=== PATIENT | female | born 1970 | race Caucasian/White ===

== ENCOUNTER 2016-07-17 16:14 | Emergency (ER) | payer MEDICARE, MEDICAID ==
[~2016-07-17] VITALS: Ht 162.6 cm; Wt 130.0 kg
[~2016-07-17 16:14] MED LIST: ALBU17I INH; AMOX500T2 PO; CETI5SOL PO; CROM5.2S; OCUF0.3D LEFT EYE; [UNRECOGNIZED DRUG - CODE] LEFT EYE
[2016-07-17 16:17] VITALS: BP 125/76; PULSE 112; RESP 24; TEMP 98; O2SAT 95
[2016-07-17] MEDS ORDERED: depression med (16:45)
[2016-07-17] MEDS ORDERED: ALBU6.7H INH (16:45)
[2016-07-17] MEDS ORDERED: methylPREDNISolone SOD SUCC 125 MG/2 ML VIAL IVP ONE (17:15)
[2016-07-17] MEDS ORDERED: SODIUM CHLORIDE 0.9% FLUSH 5 ML FLUSH IVF PRN (17:15)
[2016-07-17 17:22] VITALS: O2SAT 98
--- NOTE | 2016-07-17 17:22 | RADRPT ---
EXAM DATE/TIME: 07/17/2016 17:19 [place] COMPARISON: CHEST SINGLE AP, September 29, 2014, 17:57. INDICATIONS : Wheezing MEDICAL HISTORY : Asthma SURGICAL HISTORY : None. ENCOUNTER: Initial ACUITY: 3 days PAIN SCORE: 0/10 LOCATION: Bilateral chest FINDINGS: A single view of the chest demonstrates the lungs to be symmetrically aerated without evidence of mas s, infiltrate or effusion. The cardiomediastinal contours are unremarkable. Osseous structures are intact. CONCLUSION: No acute disease. Junior Wood MD FACR on July 17, 2016 at 17:20 Board Certified Radiologist. This report was verified electronically.
[2016-07-17] MEDS: RESP: ALBUTEROL 2.5 MG/IPRATROPIUM 0.5 MG NEB (SCH) INH ×2 (17:37→17:38)
[2016-07-17 17:40] LABS: AUTOMATED NEUTROPHIL # 6.3 TH/MM3 (1.8-7.7); BASOPHIL # 0.1 TH/MM3 (0-0.2); BASOPHIL % 0.7 % (0.0-2.0); EOSINOPHIL # 0.2 TH/MM3 (0-0.4); EOSINOPHIL % 1.9 % (0.0-4.0); HEMATOCRIT 41.7 % (35.0-46.0); HEMO FLAGS DIFF FINAL; LYMPH % 32.6 % (9.0-44.0); LYMPHOCYTE # 3.6 TH/MM3 (1.0-4.8); MEAN CELL VOLUME 81.7 FL (80.0-100.0); MEAN CORPUSCULAR HEMOGLOBIN 26.9 PG (27.0-34.0); MONO % 7.1 % (0.0-8.0); NEUT % 57.7 % (16.0-70.0); PLATELET COUNT 224 TH/MM3 (150-450); RED CELL DISTRIBUTION WIDTH 15.1 % (11.6-17.2)
--- NOTE | 2016-07-17 17:51 | PD ---
HPI Chief Complaint: Respiratory Symptoms Time Seen by Provider: 17:05 Travel History International Travel<30 days: No Contact w/Intl Traveler<30days: No Traveled to known affect area: No History of Present Illness HPI This is a 45-year-old female who presents to the emergency department with for 5 days of rhinorrhea, sore throat, productive cough with green sputum and shortness of breath. She has a history of asthma and she feels like her shortness of breath is worsening. She says that she has had subjective fevers and chills. She called her doctor who told her to come to the emergency department. She is also having burning in her upper chest which is worse with deep breaths and with coughing. She feels very fatigued and malaise. PFSH Past Medical History Asthma: Yes Anxiety: Yes Heart Rhythm Problems: No Cardiac Catheterization: No Cardiovascular Problems: Yes (htn) High Cholesterol: No Congestive Heart Failure: No Diabetes: Yes (diet controlled) Patient Takes Glucophage: No Diminished Hearing: No GERD: Yes Heparin Induced Thrombocytopen: No Hypertension: Yes Respiratory: Yes (asthma) Immunizations Current: Yes Thyroid Disease: Yes (HYPOTHYROID) Influenza Vaccination: No ?: Not Menopausal: Yes Past Surgical History Section: Yes (X2) Coronary Artery Bypass Graft: No Hysterectomy: Yes Family History Family Myocardial Infarction: Yes Social History Alcohol Use: Yes (SOCIALLY) Tobacco Use: No Substance Use: No (Pt denies) Allergies-Medications (Allergen,Severity, Reaction): Coded Allergies: Adhesives (Verified Allergy, Severe, RASH, 07/17/16) Advair (Verified Allergy, Severe, 07/17/16) Bee Sting (Verified Adverse Reaction, Intermediate, FACIAL SWELLING, ) Uncoded Allergies: ASTHMA PILL (Allergy, Severe, 12/19/11) z-pack (Adverse Reaction, Intermediate, itching, 11/12/13) Reported Meds & Prescriptions Reported Meds & Active Scripts Active Reported [depression med] Proventil Hfa 6.7 GM Inh (Albuterol Sulfate) 90 Mcg/Act Aer 1 Puff INH Q4H PRN Review of Systems Except as stated in HPI: all other systems reviewed are Neg Physical Exam Narrative GENERAL:Well appearing, no acute distress SKIN: Warm and dry. HEAD: Atraumatic. Normocephalic. EYES: Pupils equal and round. No injection or drainage. ENT: Moist mucous membranes. Mild posterior pharyngeal erythema. NECK: Trachea midline. CARDIOVASCULAR: Regular rate and rhythm. No murmur appreciated. RESPIRATORY: Diffuse wheezing bilaterally, no increased work of breathing. GASTROINTESTINAL: Abdomen soft, non-tender, nondistended. MUSCULOSKELETAL: No obvious deformities. NEUROLOGICAL: Awake and alert. No obvious cranial nerve deficits. Moving all extremities. PSYCHIATRIC: Appropriate mood and affect; insight and judgment normal. Data Data Last Documented VS Vital Signs Date Time Temp Pulse Resp B/P Pulse Ox O2 Delivery O2 Flow Rate FiO2 07/17/16 17:22 98 Room Air 07/17/16 16:17 98.0 112 24 125/76 Orders Electrocardiogram (07/17/16 ) Complete Blood Count With Diff (07/17/16 17:10) Comprehensive Metabolic Panel (07/17/16 17:10) Chest, Single Ap (07/17/16 17:10) Ecg Monitoring (07/17/16 17:10) Iv Access Insert/Monitor (07/17/16 17:10) Oximetry (07/17/16 17:10) Oxygen Administration (07/17/16 17:10) Methylprednisolone So Succ Inj (Solumedr (07/17/16 17:15) Albuterol-Ipratropium Neb (Duoneb Neb) (07/17/16 17:15) Sodium Chloride 0.9% Flush (Ns Flush) (07/17/16 17:15) Troponin I (07/17/16 17:10) Labs Laboratory Tests Test 07/17/16 17:14 White Blood Count 11.0 TH/MM3 Red Blood Count 5.10 MIL/MM3 Hemoglobin 13.7 GM/DL Hematocrit 41.7 % Mean Corpuscular Volume 81.7 FL Mean Corpuscular Hemoglobin 26.9 PG Mean Corpuscular Hemoglobin 33.0 % Concent Red Cell Distribution Width 15.1 % Platelet Count 224 TH/MM3 Mean Platelet Volume 8.1 FL Neutrophils (%) (Auto) 57.7 % Lymphocytes (%) (Auto) 32.6 % Monocytes (%) (Auto) 7.1 % Eosinophils (%) (Auto) 1.9 % Basophils (%) (Auto) 0.7 % Neutrophils # (Auto) 6.3 TH/MM3 Lymphocytes # (Auto) 3.6 TH/MM3 Monocytes # (Auto) 0.8 TH/MM3 Eosinophils # (Auto) 0.2 TH/MM3 Basophils # (Auto) 0.1 TH/MM3 CBC Comment DIFF FINAL Differential Comment Sodium Level 139 MEQ/L Potassium Level 3.9 MEQ/L Chloride Level 108 MEQ/L Carbon Dioxide Level 22.8 MEQ/L Anion Gap 8 MEQ/L Blood Urea Nitrogen 16 MG/DL Creatinine 0.81 MG/DL Estimat Glomerular Filtration 76 ML/MIN Rate Random Glucose 114 MG/DL Calcium Level 8.3 MG/DL Total Bilirubin 0.2 MG/DL Aspartate Amino Transf 20 U/L (AST/SGOT) Alanine Aminotransferase 26 U/L (ALT/SGPT) Alkaline Phosphatase 73 U/L Troponin I LESS THAN 0.02 NG/ML Total Protein 7.2 GM/DL Albumin 3.2 GM/DL MDM Medical Decision Making Medical Screen Exam Complete: Yes Emergency Medical Condition: Yes Interpretation(s) Afebrile, tachycardic, normotensive No leukocytosis Electrolytes within normal limits Troponin normal Chest x-ray: No acute process Differential Diagnosis Bronchitis, pneumonia, pulmonary embolism, myocardial infarction, acute coronary syndrome Narrative Course This is a 45-year-old female who presents to the emergency department with shortness of breath, wheezing, congestion and productive cough. Patient has audible wheezing on exam. She is placed on a monitor and an IV was established. Labs are all reassuring and chest x-ray is unremarkable with no evidence of pneumonia. I think patient is having an asthma exacerbation in the setting of a viral syndrome. She'll be discharged home with prednisone and bronchodilators. Diagnosis Primary Impression: Acute bronchitis with asthma with acute exacerbation Patient Instructions: General Instructions Additional Instructions: If you develop severe shortness of breath, chest pain, or difficulty breathing return to the emergency department. Use albuterol every 4 hours for the next 2 days. Then use as needed for wheezing. Complete your course of steroids. Complete your course of antibiotics. Follow up with your primary care physician in 2-3 days if your symptoms have not improved. Med/Other Pt SpecificInfo: Prescription(s) given Scripts Prednisone 20 Mg Tab40 Mg PO DAILY #4 TAB Ref 0 Prov:Evelyn Hernández MD 07/17/16 Albuterol Neb 2.5 Mg/3 Ml Neb2.5 Mg NEB Q4HR NEB PRN (SHORTNESS OF BREATH) #60 NEBULE Ref 0 Prov:Highet,Evelyn H. MD 07/17/16 Albuterol 18 GM Inh (Ventolin Hfa 18 GM Inh)90 Mcg/Act Aer2 Puff INH Q4-6H PRN ( SHORTNESS OF BREATH) #1 INHALER Ref 0 Prov:Evelyn Hernández MD 07/17/16 Levofloxacin (Levaquin)500 Mg [id number] Mg PO DAILY 7 Days Ref 0 Prov:Evelyn Hernández MD 07/17/16 Disposition: 01 DISCHARGE HOME Condition: Stable Evelyn Hernández MD Jul 17, 2016 17:51
[2016-07-17 17:57] LABS: ANION GAP 8 MEQ/L (5-15); AST (GOT) 20 U/L (15-37); BICARBONATE 22.8 MEQ/L (21.0-32.0); BLOOD UREA NITROGEN 16 MG/DL (7-18); CHLORIDE 108 MEQ/L (98-107); GLOMERULAR FILTRATION RATE 76 ML/MIN (>89); POTASSIUM 3.9 MEQ/L (3.5-5.1); SODIUM (NA) 139 MEQ/L (136-145)
[2016-07-17 18:02] LABS: ALKALINE PHOSPHATASE 73 U/L (45-117); ALT (GPT) 26 U/L (10-53); TOTAL BILIRUBIN ADULT 0.2 MG/DL (0.2-1.0)
[2016-07-17] MEDS ORDERED: PRED20 PO (18:10)
[2016-07-17] MEDS ORDERED: VENTAER INH (18:10)
[2016-07-17] MEDS ORDERED: ALBU0.08 NEB (18:10)
[2016-07-17] MEDS ORDERED: LEVA500T PO (18:10)
--- NOTE | 2016-07-18 18:53 | EKG ---
Date Performed: 07/17/2016 Time Performed: 17:03:38 PTAGE: 45 years EKG: Sinus rhythm BORDERLINE LEFT AXIS DEVIATION VOLTAGE CRITERIA FOR LVH ABNORMAL ECG PREVIOUS TRACING : 09/29/2014 18.08 Since previous tracing, no significant change noted DOCTOR: Becca Zavala Interpretating Date/Time 07/18/2016 18:52:23
== END 2016-07-17 18:29 | disposition home or self-care (01) ==
LOC: NEPC 16:14
DX: J20.9 Acute bronchitis, unspecified (principal); J45.901 Unspecified asthma with (acute) exacerbation; I10 Essential (primary) hypertension; E03.9 Hypothyroidism, unspecified
CPT/HCPCS: 71010; 80053; 84484; 85025; 93005; 94640; 94664; 96374; 99284; J2930

== ENCOUNTER 2017-01-04 20:38 | Emergency (ER) | payer MEDICARE, MEDICAID ==
[~2017-01-04 20:38] MED LIST changes: +ALBU0.08 NEB; -ALBU17I INH; +ALBU6.7H INH; -AMOX500T2 PO; -CETI5SOL PO; -CROM5.2S; +LEVA500T PO; -OCUF0.3D LEFT EYE; +PRED20 PO; +VENTAER INH; -[UNRECOGNIZED DRUG - CODE] LEFT EYE; +depression med
[2017-01-04 20:40] VITALS: BP 128/66; PULSE 80; RESP 16; TEMP 98.2; O2SAT 98
--- NOTE | 2017-01-04 21:42 | PD ---
Physical Exam Date Seen by Provider: Jan 04, 2017 Time Seen by Provider: 21:41 Data Data Last Documented VS Vital Signs Date Time Temp Pulse Resp B/P Pulse Ox O2 Delivery O2 Flow Rate FiO2 01/04/17 20:40 98.2 80 16 128/66 98 Room Air [facility] Supervised Visit with CRISTINA: No Narrative Course 46 YO F with complaint of 2 days history of burning bilateral hand and foot pain. Sudden onset. Rated 10/10. Vitals reviewed. Patient seen in triage, awaiting bed placement. Ladonna Villegas Jan 04, 2017 21:42
[2017-01-04] MEDS ORDERED: KETOROLAC TROMETHAMINE 30 MG/ML (IVP) VIAL IV PUSH ONE (23:00)
[2017-01-04 23:11] VITALS: RESP 15; O2SAT 98
[2017-01-04 23:31] LABS: AUTOMATED NEUTROPHIL # 5.9 TH/MM3 (1.8-7.7); BASOPHIL # 0.1 TH/MM3 (0-0.2); BASOPHIL % 1.2 % (0.0-2.0); EOSINOPHIL # 0.3 TH/MM3 (0-0.4); EOSINOPHIL % 2.5 % (0.0-4.0); HEMO FLAGS DIFF FINAL; LYMPH % 33.3 % (9.0-44.0); LYMPHOCYTE # 3.8 TH/MM3 (1.0-4.8); MEAN CELL VOLUME 81.6 FL (80.0-100.0); MEAN CORPUSCULAR HGB CONC 31.8 % (32.0-36.0); MONO % 11.1 % (0.0-8.0); NEUT % 51.9 % (16.0-70.0); PLATELET COUNT 212 TH/MM3 (150-450); RED BLOOD COUNT 4.29 MIL/MM3 (4.00-5.30); RED CELL DISTRIBUTION WIDTH 15.1 % (11.6-17.2); WHITE BLOOD COUNT 11.3 TH/MM3 (4.0-11.0)
[2017-01-04 23:41] LABS: BLOOD, URINE NEG (NEG); CALCIUM OXALATE CRYSTALS,URINE FEW /hpf; COMMENT (UR) CULT NOT INDICATED; CULTURE IF INDICATED CULT NOT INDICATED; GLUCOSE,URINE NEG (NEG); KETONE, URINE NEG (NEG); MUCUS URINE MANY /lpf (OCC); NITRITE,URINE NEG (NEG); SQUAMOUS EPITHELIAL CELL URINE 6 /hpf (0-5); URINE COLOR YELLOW (YELLW/STRAW)
[2017-01-04 23:46] LABS: ALT (GPT) 29 U/L (10-53); ANION GAP 6 MEQ/L (5-15); AST (GOT) 19 U/L (15-37); BICARBONATE 28.1 MEQ/L (21.0-32.0); BLOOD UREA NITROGEN 16 MG/DL (7-18); CHLORIDE 107 MEQ/L (98-107); GLOMERULAR FILTRATION RATE 96 ML/MIN (>89); MAGNESIUM 1.9 MG/DL (1.5-2.5); POTASSIUM 3.9 MEQ/L (3.5-5.1); SODIUM (NA) 141 MEQ/L (136-145)
[2017-01-04 23:55] LABS: ALKALINE PHOSPHATASE 85 U/L (45-117); TOTAL BILIRUBIN ADULT 0.2 MG/DL (0.2-1.0)
--- NOTE | 2017-01-04 23:56 | PD ---
HPI Chief Complaint: Edema Time Seen by Provider: 22:51 Travel History International Travel<30 days: No Contact w/Intl Traveler<30days: No Traveled to known affect area: No History of Present Illness HPI The patient is a 46 year old female who presents to the [facility] emergency department with a history of noticing lower extremity edema around noon yesterday. She then began to notice that she had some swelling in her hands. She reports that she has burning in her feet related to the swelling. She denies having any changes to her medication regimen recently. She reports that she does take Aleve twice daily on a daily basis for sciatica and tennis elbow. She reports that she's been doing this for the last 6 months. The patient is unable to recall some of her other medications that she takes at home. She reports that she has been diagnosed as hypothyroid, however a year ago. TSH was normal and her thyroid supplement was discontinued. She is followed by Dr. Guy for her primary care. I review of systems, the patient denies any fevers, cough, congestion, neck pain, chest pain, shortness of breath , abdominal pain, vomiting, diarrhea, urinary symptoms, or neurologic symptoms. [facility] Past Medical History Narrative Medical The patient's past medical history is significant for hypertension, asthma, anxiety disorder, dietary-controlled diabetes mellitus, acid reflux,, hypothyroid disorder. Asthma: Yes Anxiety: Yes Heart Rhythm Problems: No Cardiac Catheterization: No Cardiovascular Problems: Yes (ANGINA ,HTN) High Cholesterol: No Congestive Heart Failure: No Diabetes: Yes (diet controlled) Patient Takes Glucophage: No Diminished Hearing: No GERD: Yes Heparin Induced Thrombocytopen: No Hypertension: Yes Respiratory: Yes (asthma) Immunizations Current: Yes Thyroid Disease: Yes (HYPOTHYROID) ?: Not Menopausal: Yes Past Surgical History Narrative Surgical The patient's past surgical history is significant for 2, hysterectomy. Section: Yes (X2) Coronary Artery Bypass Graft: No Hysterectomy: Yes Family History Family Myocardial Infarction: Yes Social History Alcohol Use: Yes (SOCIALLY) Tobacco Use: No Substance Use: No (Pt denies) Allergies-Medications (Allergen,Severity, Reaction): Coded Allergies: Adhesives (Verified Allergy, Severe, RASH, 01/04/17) Advair (Verified Allergy, Severe, 01/04/17) Bee Sting (Verified Adverse Reaction, Intermediate, FACIAL SWELLING, ) Uncoded Allergies: ASTHMA PILL (Allergy, Severe, 12/19/11) z-pack (Adverse Reaction, Intermediate, itching, 11/12/13) Reported Meds & Prescriptions Reported Meds & Active Scripts Active Prednisone 20 Mg Tab 40 Mg PO DAILY Albuterol Neb (Albuterol Sulfate) 2.5 Mg/3 Ml Neb 2.5 Mg NEB Q4HR NEB PRN Ventolin Hfa 18 GM Inh (Albuterol Sulfate) 90 Mcg/Act Aer 2 Puff INH Q4-6H PRN Levaquin (Levofloxacin) 500 Mg Tab 500 Mg PO DAILY 7 Days Reported [depression med] Proventil Hfa 6.7 GM Inh (Albuterol Sulfate) 90 Mcg/Act Aer 1 Puff INH Q4H PRN Review of Systems Except as stated in HPI: all other systems reviewed are Neg General / Constitutional: No: Fever Eyes: No: Visual changes HENT: No: Headaches Cardiovascular: Positive: Edema, No: Chest Pain or Discomfort Respiratory: No: Shortness of Breath Gastrointestinal: No: Abdominal Pain Genitourinary: No: Dysuria Musculoskeletal: Positive: Myalgias, Edema, Pain Skin: No Rash Neurologic: No: Weakness Psychiatric: No: Depression Endocrine: No: Polydipsia Hematologic/Lymphatic: No: Easy Bruising Physical Exam Narrative General: The patient is a well-developed well-nourished female in no acute distress. Head and Neck exam: Head is normocephalic atraumatic. Eyes: EOMI, pupils are equal round and reactive to light. Nose: Midline septum with pink mucous membranes Mouth: Dentition unremarkable. Moist mucus membranes. Posterior oropharynx is not erythematous. No tonsillar hypertrophy. Uvula midline. Airway patent. Neck: No palpable lymphadenopathy. No nuchal rigidity. No thyromegaly. Cardiovascular: Regular rate and rhythm without murmurs, gallops, or rubs. No pulse deficit to the extremities and simultaneous auscultation and palpation of her radial artery. Lungs: Clear to auscultation bilaterally. No wheezes, rhonchi, or rales. Abdomen: Soft, without tenderness to palpation in all 4 quadrants of the abdomen. No guarding, rebound, or rigidity. Negative [place] sign. Extremities: No clubbing or cyanosis. The patient has 1+ nonpitting edema bilateral lower extremities with some swelling noted in her hands bilaterally. 2+ pulses in all 4 extremities. No calf tenderness on palpation. Negative [place] sign. No erythema noted. No warmth on palpation. Back: No costovertebral angle tenderness to palpation. Neurologic Exam: Grossly nonfocal. Skin Exam: No rash noted. Intact skin that is warm and dry. Data Data Last Documented VS Vital Signs Date Time Temp Pulse Resp B/P Pulse Ox O2 Delivery O2 Flow Rate FiO2 01/04/17 23:11 15 98 Room Air 01/04/17 20:40 98.2 80 128/66 Orders Complete Blood Count With Diff (01/04/17 22:53) Comprehensive Metabolic Panel (01/04/17 22:53) B-Type Natriuretic Peptide (01/04/17 22:53) C-Reactive Protein (Crp) (01/04/17 22:53) Urinalysis - C+S If Indicated (01/04/17 22:53) Magnesium (Mg) (01/04/17 22:53) Thyroid Stimulating Hormone (01/04/17 22:53) Iv Access Insert/Monitor (01/04/17 22:53) Ecg Monitoring (01/04/17 22:53) Oximetry (01/04/17 22:53) Ketorolac Inj (Toradol Inj) (01/04/17 23:00) Acetaminophen (Tylenol) (01/05/17 00:45) Labs Laboratory Tests Test 01/04/17 23:00 White Blood Count 11.3 TH/MM3 Red Blood Count 4.29 MIL/MM3 Hemoglobin 11.1 GM/DL Hematocrit 35.0 % Mean Corpuscular Volume 81.6 FL Mean Corpuscular Hemoglobin 26.0 PG Mean Corpuscular Hemoglobin 31.8 % Concent Red Cell Distribution Width 15.1 % Platelet Count 212 TH/MM3 Mean Platelet Volume 8.3 FL Neutrophils (%) (Auto) 51.9 % Lymphocytes (%) (Auto) 33.3 % Monocytes (%) (Auto) 11.1 % Eosinophils (%) (Auto) 2.5 % Basophils (%) (Auto) 1.2 % Neutrophils # (Auto) 5.9 TH/MM3 Lymphocytes # (Auto) 3.8 TH/MM3 Monocytes # (Auto) 1.3 TH/MM3 Eosinophils # (Auto) 0.3 TH/MM3 Basophils # (Auto) 0.1 TH/MM3 CBC Comment DIFF FINAL Differential Comment Urine Color YELLOW Urine Turbidity HAZY Urine pH 6.0 Urine Specific [place] 1.039 Urine Protein 30 mg/dL Urine Glucose (UA) NEG mg/dL Urine Ketones NEG mg/dL Urine Occult Blood NEG Urine Nitrite NEG Urine Bilirubin NEG Urine Urobilinogen 2.0 MG/DL Urine Leukocyte Esterase NEG Urine RBC 5 /hpf Urine WBC 2 /hpf Urine Squamous Epithelial 6 /hpf Cells Urine Calcium Oxalate Crystals FEW /hpf Urine Mucus MANY /lpf Microscopic Urinalysis Comment CULT NOT INDICATED Sodium Level 141 MEQ/L Potassium Level 3.9 MEQ/L Chloride Level 107 MEQ/L Carbon Dioxide Level 28.1 MEQ/L Anion Gap 6 MEQ/L Blood Urea Nitrogen 16 MG/DL Creatinine 0.66 MG/DL Estimat Glomerular Filtration 96 ML/MIN Rate Random Glucose 95 MG/DL Calcium Level 8.7 MG/DL Magnesium Level 1.9 MG/DL Total Bilirubin 0.2 MG/DL Aspartate Amino Transf 19 U/L (AST/SGOT) Alanine Aminotransferase 29 U/L (ALT/SGPT) Alkaline Phosphatase 85 U/L C-Reactive Protein 2.01 MG/DL Total Protein 6.8 GM/DL Albumin 3.3 GM/DL Thyroid Stimulating Hormone 3.880 uIU/ML 3rd Gen B-Type Natriuretic Peptide 12 PG/ML [facility] Medical Decision Making Medical Screen Exam Complete: Yes Emergency Medical Condition: Yes Medical Record Reviewed: Yes Differential Diagnosis Hypothyroid with myxedema, versus peripheral edema related to hypoalbuminemia, versus valvular abnormality veins of her legs, versus edema related to renal insufficiency, versus congestive heart failure Narrative Course During the course of the patients emergency department visit, the patients history, examination, and differential diagnosis were reviewed with the patient. The patient had IV access obtained and blood work sent for analysis. The patient was placed on a court recording monitor with oximetry and blood pressure monitoring. The patient was initially provided Toradol 15 mg IV for pain. The patient reported continued pain and was offered Tylenol, however she refused. The patients laboratory studies were reviewed and remarkable for white count 11.3, hemoglobin 11.1, platelets 212 with 11.1 monocytes. CMP is remarkable for C-reactive protein 2.01, BNP is 12, albumin 3.3, TSH 3.88, urinalysis shows an elevated specific gravity, 30 protein, few calcium oxalate crystals, many mucus, rbc's 5. Given the patient's elevated TSH, this could be partly the cause of the patient' s fluid retention. Additionally the patient is noted to have hypoalbuminemia with the albumin at 3.3 which could be contributing to her fluid retention. She is instructed to increase the protein in her diet. The patient was instructed to follow-up with her primary care physician regarding this for additional thyroid testing to include a free T3-T4. In the meantime she is instructed to switch from Aleve to Tylenol for pain if she has a pain level between 1-5. If the pain level is greater than 5 she is given a prescription for hydrocodone. The patient is resting comfortably and feels better, is alert and in no distress. The patients results and examination findings were discussed with the patient. The repeat examination is unremarkable and benign. The history, exam, diagnostic testing, and current condition do not suggest any significant pathology to warrant further testing, continued ED treatment, admission, or surgical evaluation at this point. The vital signs have been stable. The patient does not have uncontrollable pain, intractable vomiting, or other significant symptoms. The patient's condition is stable and appropriate for discharge. The patient will pursue further outpatient evaluation with a primary care physician or other designated or consulting physician as indicated in the discharge instructions. The patient expressed understanding and was agreeable with this plan. Diagnosis Primary Impression: Peripheral edema Additional Impressions: Hypothyroidism Qualified Code: E03.9 - Hypothyroidism, unspecified type Hypoalbuminemia Referrals: Primary Care Physician 2 days Patient Instructions: Edema (ED), General Instructions, Hypothyroidism (ED) Med/Other Pt SpecificInfo: Prescription(s) given Scripts Hydrocodone-Acetaminophen (Lortab)7.5-325 Mg Tab1 Tab PO Q6H PRN (PAIN GREATER THAN 5) #12 TAB Ref 0 Prov:Denise Starr MD 01/05/17 Disposition: 01 DISCHARGE HOME Condition: Stable Denise Starr MD Jan 04, 2017 23:56
[2017-01-05] MEDS ORDERED: ACETAMINOPHEN 325 MG TAB PO ONE (00:45)
[2017-01-05] MEDS ORDERED: HYDR-3534 PO (00:59)
[2017-01-05] MEDS ORDERED: ACETAMINOPHEN/HYDROcodone 325 MG/5 MG TAB PO ONE (01:30)
== END 2017-01-05 01:27 | disposition home or self-care (01) ==
LOC: NEPC 20:38
DX: R60.0 Localized edema (principal); E03.9 Hypothyroidism, unspecified; E88.09 Other disorders of plasma-protein metabolism, not elsewhere classified; I10 Essential (primary) hypertension; E11.9 Type 2 diabetes mellitus without complications; F41.9 Anxiety disorder, unspecified; J45.909 Unspecified asthma, uncomplicated; Z79.899 Other long term (current) drug therapy
CPT/HCPCS: 80053; 81001; 83735; 83880; 84443; 85025; 86140; 96374; 99284; J1885

== ENCOUNTER 2017-07-08 17:34 | Emergency (ER) | payer MEDICARE, MEDICAID ==
[~2017-07-08] VITALS: Ht 162.6 cm; Wt 136.4 kg
[~2017-07-08 17:34] MED LIST changes: +HYDR-3534 PO
[2017-07-08 17:36] VITALS: BP 129/83; PULSE 76; RESP 16; TEMP 98; O2SAT 98
[2017-07-08] MEDS ORDERED: PRED20 PO (18:22)
[2017-07-08] MEDS ORDERED: BENZ100 PO (18:22)
[2017-07-08 18:26] VITALS: TEMP 97.7
--- NOTE | 2017-07-08 18:31 | PD ---
HPI Chief Complaint: Cold / Flu Symptoms Time Seen by Provider: 18:05 Travel History International Travel<30 days: No Contact w/Intl Traveler<30days: No Traveled to known affect area: No History of Present Illness HPI 46-year-old female presents to the emergency room for evaluation of nonproductive cough, sore throat, body aches, and congestion for the past week. States it started off as a cold but the cough has lingered. The cough is severe and keeps her up at night. She has tried everything [id number] without any relief in symptoms. History of asthma and states she gets sick with this illness every year. She has albuterol inhaler and nebulizer treatments at home that she has been using. She has history of chronic allergies and sinus disease for which she takes fluticasone, Zyrtec, and an unknown pill. Denies history of diabetes. She denies any fever, nausea, vomiting. PFSH Past Medical History Asthma: Yes Anxiety: Yes Heart Rhythm Problems: No Cardiac Catheterization: No Cardiovascular Problems: Yes (ANGINA ,HTN) High Cholesterol: No Congestive Heart Failure: No Diabetes: Yes Patient Takes Glucophage: No Diminished Hearing: No GERD: Yes Heparin Induced Thrombocytopen: No Hypertension: Yes Respiratory: Yes (asthma) Immunizations Current: Yes Thyroid Disease: Yes (HYPOTHYROID) Tetanus Vaccination: < 5 Years Influenza Vaccination: No ?: Not Menopausal: Yes Past Surgical History Section: Yes (X2) Coronary Artery Bypass Graft: No Hysterectomy: Yes Family History Family Myocardial Infarction: Yes Social History Alcohol Use: Yes (SOCIALLY) Tobacco Use: No Substance Use: No (Pt denies) Allergies-Medications (Allergen,Severity, Reaction): Coded Allergies: adhesive (Unverified Allergy, Severe, RASH, 07/08/17) fluticasone (Unverified Allergy, Severe, 07/08/17) fluticasone furoate (Unverified Allergy, Severe, 07/08/17) salmeterol (Unverified Allergy, Severe, 07/08/17) bee venom protein (honey bee) (Unverified Adverse Reaction, Intermediate, FACIAL SWELLING, 07/08/17) Uncoded Allergies: ASTHMA PILL (Allergy, Severe, 12/19/11) z-pack (Adverse Reaction, Intermediate, itching, 11/12/13) Reported Meds & Prescriptions Reported Meds & Active Scripts Active Prednisone 20 Mg Tab 40 Mg PO DAILY Take 40 mg (2 tablets) daily for 5 days Tessalon Perles (Benzonatate) 100 Mg Cap 100 Mg PO TID PRN Reported [depression med] Review of Systems Except as stated in HPI: all other systems reviewed are Neg Physical Exam Narrative GENERAL: Well-nourished, morbidly obese female in no acute distress. Afebrile. Ambulatory. SKIN: Focused skin assessment warm/dry. HEAD: Normocephalic. EYES: No scleral icterus. No injection or drainage. ENT: Mucosa pink and moist. Mild erythema without edema or exudates. No uvular edema. No uvular, palatal, or tonsillar deviation. Airway patent. Nasal turbinates appear normal without nasal blood, purulent drainage or septal hematoma. EARS: Bilateral pinnae and external canals appear within normal limits. Bilateral tympanic membranes without erythema, dullness or perforation. NECK: Supple, trachea midline. No JVD or lymphadenopathy. CARDIOVASCULAR: Regular rate and rhythm without murmurs, gallops, or rubs. RESPIRATORY: Breath sounds equal bilaterally. No accessory muscle use. Mild expiratory wheezing bilaterally. Data Data Last Documented VS Vital Signs Date Time Temp Pulse Resp B/P (MAP) Pulse Ox O2 Delivery O2 Flow Rate FiO2 07/08/17 17:36 98.0 76 16 129/83 (98) 98 Room Air MDM Medical Decision Making Medical Screen Exam Complete: Yes Emergency Medical Condition: Yes Medical Record Reviewed: Yes Differential Diagnosis Asthma exacerbation, bronchitis, upper respiratory infection Narrative Course 46-year-old female with history of asthma and chronic sinusitis presents to the emergency room for evaluation of nonproductive cough and cold symptoms for the past week. Patient is afebrile and well-appearing in the emergency room. Vital signs stable. Resting comfortably. Lungs sounds reveal very mild bilateral expiratory wheezing. She is uncooperative on exam and refuses to take a deep breath until she has forced to while coughing. History and physical exam are consistent with viral bronchitis. She'll be discharged with prescription for prednisone and Tessalon Perles. Follow up with her primary care physician or return for worsening symptoms. She understands and agrees to plan. Diagnosis Primary Impression: Acute bronchitis Qualified Codes: J20.9 - Acute bronchitis, unspecified Referrals: Primary Care Physician Additional Instructions: Rest and drink plenty of fluids. Take prednisone as directed, until gone. Take Tessalon Perles as directed, as needed for cough. Follow-up with a primary care physician. Return to the emergency room for worsening symptoms. Med/Other Pt SpecificInfo: Prescription(s) given Scripts Prednisone (Prednisone) 20 Mg Tab 40 MG PO DAILY, #10 TAB 0 Refills Take 40 mg (2 tablets) daily for 5 days Prov: Barry Torres MD 07/08/17 Benzonatate (Tessalon Perles) 100 Mg Cap 100 MG PO TID Y for COUGH, #15 CAP 0 Refills Prov: Barry Torres MD 07/08/17 Disposition: 01 DISCHARGE HOME Condition: Stable Chantel Ramirez Jul 08, 2017 18:31
== END 2017-07-08 18:42 | disposition home or self-care (01) ==
LOC: NEPK 17:34
DX: J20.9 Acute bronchitis, unspecified (principal); J45.909 Unspecified asthma, uncomplicated; I10 Essential (primary) hypertension; E11.9 Type 2 diabetes mellitus without complications; E03.9 Hypothyroidism, unspecified; F41.9 Anxiety disorder, unspecified; K21.9 Gastro-esophageal reflux disease without esophagitis
CPT/HCPCS: 99283

== ENCOUNTER 2017-10-11 15:50 | Emergency (ER) | payer MEDICAID, MEDICARE ==
[~2017-10-11] VITALS: Ht 162.6 cm; Wt 139.0 kg
[~2017-10-11 15:50] MED LIST changes: -ALBU0.08 NEB; -ALBU6.7H INH; +BENZ100 PO; -HYDR-3534 PO; -LEVA500T PO; -VENTAER INH
[2017-10-11 15:52] VITALS: PULSE 96; RESP 18; TEMP 97.7; O2SAT 97
[2017-10-11] MEDS ORDERED: ALBUAER3 INH (18:02)
[2017-10-11] MEDS ORDERED: ALBU0.08 NEB (18:02)
[2017-10-11] MEDS ORDERED: GABA100C4 PO (18:02)
--- NOTE | 2017-10-11 18:20 | PD ---
HPI Chief Complaint: Musculoskeletal Complaint Time Seen by Provider: 17:33 Travel History International Travel<30 days: No Contact w/Intl Traveler<30days: No Traveled to known affect area: No History of Present Illness HPI 46-year-old female presents to the emergency room for evaluation of bilateral leg pain and bilateral wrist pain after mechanical trip and fall just prior to arrival. Patient fell over a curb and landed with outstretched arms onto the concrete parking lot. She states upon falling she twisted her left ankle and landed strange on it. Since then she has had extreme pain in her left foot, left ankle that radiates into the left knee. Pain is worsened with any range of motion. States she cannot put any weight on the left leg. Patient has history of chronic right sciatica pain that was exacerbated from the fall but she denies any significant bony tenderness. She also reports achiness in her upper body including her wrists but believes that was more from her son trying to help her up off the ground. Patient has not taken anything for her symptoms. She denies paresthesias. PFSH Past Medical History Asthma: Yes Anxiety: Yes Depression: Yes Heart Rhythm Problems: No Cardiac Catheterization: No Cardiovascular Problems: Yes (ANGINA ,HTN) High Cholesterol: No Congestive Heart Failure: No Diabetes: Yes Patient Takes Glucophage: No Diminished Hearing: No GERD: Yes Heparin Induced Thrombocytopen: No Hypertension: Yes Respiratory: Yes (asthma) Immunizations Current: Yes Thyroid Disease: Yes (HYPOTHYROID) Influenza Vaccination: No ?: Not Menopausal: Yes Past Surgical History Section: Yes (X2) Coronary Artery Bypass Graft: No Gynecologic Surgery: Yes (C sec X2, hyster) Hysterectomy: Yes Social History Alcohol Use: Yes (SOCIALLY) Tobacco Use: No Substance Use: No (Pt denies) Allergies-Medications (Allergen,Severity, Reaction): Coded Allergies: adhesive (Unverified Allergy, Severe, RASH, 10/11/17) fluticasone (Unverified Allergy, Severe, 10/11/17) fluticasone furoate (Unverified Allergy, Severe, 10/11/17) salmeterol (Unverified Allergy, Severe, 10/11/17) bee venom protein (honey bee) (Unverified Adverse Reaction, Intermediate, FACIAL SWELLING, 10/11/17) Uncoded Allergies: ASTHMA PILL (Allergy, Severe, 12/19/11) z-pack (Adverse Reaction, Intermediate, itching, 11/12/13) Reported Meds & Prescriptions Reported Meds & Active Scripts Active Reported Albuterol Neb (Albuterol Sulfate) 2.5 Mg/3 Ml Neb Unknown Dose NEB Q4HR NEB While awake Gabapentin 100 Mg Cap 100 Mg PO TID Proair Hfa 8.5 GM Inh (Albuterol Sulfate) 90 Mcg/Act Aer 2 Puff INH Q4-6H PRN 108 mcg/actuation Review of Systems Except as stated in HPI: all other systems reviewed are Neg Physical Exam Narrative GENERAL: Well-nourished, morbidly obese female in no acute distress. Afebrile. Ambulatory. SKIN: Focused skin assessment warm/dry. Very superficial abrasions to bilateral knees. HEAD: Normocephalic. EYES: No scleral icterus. No injection or drainage. NECK: Supple, trachea midline. No JVD or lymphadenopathy. CARDIOVASCULAR: Regular rate and rhythm without murmurs, gallops, or rubs. RESPIRATORY: Breath sounds equal bilaterally. No accessory muscle use. MUSCULOSKELETAL: No cyanosis. No obvious edema. 2+ dorsalis pedis pulses are equal bilaterally. Patient has extreme tenderness to palpation of the left fifth metatarsal, left lateral ankle, and anterior knee. She has limited range of motion secondary to pain. Data Data Last Documented VS Vital Signs Date Time Temp Pulse Resp B/P (MAP) Pulse Ox O2 Delivery O2 Flow Rate FiO2 10/11/17 15:52 97.7 96 18 97 Orders Orders Foot, Complete ([id number]) (10/11/17 ) Tibia/Fibula (Ap/Lat) (10/11/17 ) Crutches (10/11/17 19:56) Tony Bandage (10/11/17 19:56) Ed Discharge Order (10/11/17 19:56) [facility] Medical Decision Making Medical Screen Exam Complete: Yes Emergency Medical Condition: Yes Medical Record Reviewed: Yes Differential Diagnosis Contusion, sprain, strain, dislocation Narrative Course 46-year-old female presents to the emergency room for evaluation of bilateral leg pain and bilateral wrist pain after mechanical trip and fall just prior to arrival. Patient tripped on a curb and fell forward landing on knees and bilateral outstretched arms. She also twisted her ankle/foot on the way down. Reports minimal pain in the wrists compared to the left ankle and foot pain. Pain radiates to her knee. Physical exam reveals mild superficial abrasions to bilateral anterior knees. There is no obvious edema. Bilateral lower extremities are neurovascularly intact with 2+ dorsalis pedis pulse. Patient has full range of motion bilaterally. There is tenderness to palpation over the left fifth metatarsal. X-rays of the foot and tibia/fibula are negative for acute bony ab normality. Patient was reassured told this is likely contusion/strain. She was placed in an Tony wrap and discharged with crutches. Told to follow-up with a primary care physician or return for worsening symptoms. She understands and agrees to plan. Diagnosis Primary Impression: Sprain of left foot Qualified Codes: S93.602A - Unspecified sprain of left foot, initial encounter Referrals: Primary Care Physician Additional Instructions: Rest and drink plenty of fluids. Take ibuprofen with food as directed, as needed for pain. Apply ice to the affected area for 20 minutes at a time, as needed for pain and swelling. Follow-up with a primary care physician. Return to the emergency room for worsening symptoms. Disposition: 01 DISCHARGE HOME Condition: Stable Chantel Ramirez Oct 11, 2017 18:20
--- NOTE | 2017-10-11 19:37 | RADRPT ---
EXAM DATE/TIME: 10/11/2017 19:00 [facility] COMPARISON: No previous studies available for comparison. INDICATIONS : Pain to left 5th metatarsal and lateral ankle after falling today. MEDICAL HISTORY : None. SURGICAL HISTORY : None. ENCOUNTER: Initial ACUITY: 1 day PAIN SCORE: 5/10 LOCATION: Left foot. FINDINGS: Three view examination of the left foot demonstrates no soft tissue swelling, dislocation, or fractur e. The tarsal bones appear intact. The interphalangeal and metatarsophalangeal joints are intact. The calcaneus is intact. Bony mineralization is normal. Bipartite tibial sesamoid noted. Also a moderate to large heel spur. CONCLUSION: Intact left foot. Toni Gamez MD on October 11, 2017 at 19:34 Board Certified Radiologist. This report was verified electronically.
--- NOTE | 2017-10-11 19:38 | RADRPT ---
EXAM DATE/TIME: 10/11/2017 19:00 [facility] COMPARISON: No previous studies available for comparison. INDICATIONS : Pain to left anterior proximal tibia after falling today. MEDICAL HISTORY : None. SURGICAL HISTORY : None. ENCOUNTER: Initial ACUITY: 1 day PAIN SCORE: 6/10 LOCATION: Left tibia. FINDINGS: Two view examination of the left tibia demonstrates no evidence of fracture or dislocation. Bony min eralization is normal. The soft tissue structures are intact. CONCLUSION: Intact left tibia and fibula. Toni Gamez MD on October 11, 2017 at 19:35 Board Certified Radiologist. This report was verified electronically.
== END 2017-10-11 20:36 | disposition home or self-care (01) ==
LOC: PHED 15:50 → PHEFT 20:36
DX: S93.602A Unspecified sprain of left foot, initial encounter (principal); S80.212A Abrasion, left knee, initial encounter; S80.211A Abrasion, right knee, initial encounter; J45.909 Unspecified asthma, uncomplicated; F41.9 Anxiety disorder, unspecified; I10 Essential (primary) hypertension; E11.9 Type 2 diabetes mellitus without complications; E03.9 Hypothyroidism, unspecified; W10.1XXA Fall (on)(from) sidewalk curb, initial encounter
CPT/HCPCS: 73590; 73630; 99283; E0113